=== PATIENT | female | born 1985 | race African-American/Black ===

== ENCOUNTER 2017-09-28 01:15 | Emergency (ER) | payer MEDICAID ==
[~2017-09-28] VITALS: Ht 175.3 cm; Wt 131.3 kg
[2017-09-28 01:27] VITALS: BP 136/86
--- NOTE | 2017-09-28 01:32 | NUR ---
PT AMBULATED TO BED. URINE SAMPLE COLLECTED
--- NOTE | 2017-09-28 01:32 | NUR ---
PATIENT PRESENTS TO ED WITH VAGINAL DISCHARGE AND BURNING PAIN WITH URINATION X2 DAYS. RT STATES SHE HAS SMALL AMOUNTS OF GREEN/YELLOW DISCHARGE. PT STATES SHE CHANGED SOAPS X2 DAYS AGO. DENIES N/V/D; SKIN IS PINK/WARM/DRY; AAOX4 WITH EVEN AND STEADY GAIT; LUNGS CLEAR BL; HR EVEN AND REGULAR; PT DENIES ANY FEVER, CP, SOB, OR COUGH AT THIS TIME; PATIENT STATES PAIN OF 6/10 AT THIS TIME; VSS; PATIENT POSITIONED FOR COMFORT; HOB ELEVATED; BEDRAILS UP X2; BED DOWN. ER MD MADE AWARE OF PT STATUS. CONTINUE TO MONITOR.
[2017-09-28 02:50] VITALS: BP 132/75
--- NOTE | 2017-09-28 02:50 | NUR ---
Patient discharged with v/s stable. Written and verbal after care instructions given and explained. Patient alert, oriented and verbalized understanding of instructions. Ambulatory with steady gait. All questions addressed prior to discharge. ID band removed. Patient advised to follow up with PMD. Rx of Diflucan given. Patient educated on indication of medication including possible reaction and side effects. Opportunity to ask questions provided and answered.
[2017-09-30 06:17] LABS: CHLAMYDIA TRACHOMATIS AMP DNA Negative (Negative)
== END 2017-09-28 02:50 | disposition home or self-care (01) ==
LOC: MED 01:15
DX: B37.3 Candidiasis of vulva and vagina (principal)
CPT/HCPCS: 36415; 81002; 81025; 87070; 87210; 87491; 99284

== ENCOUNTER 2017-12-15 17:33 | Emergency (ER) | payer MEDICAID ==
[~2017-12-15] VITALS: Ht 177.8 cm; Wt 137.0 kg
[2017-12-15 17:47] VITALS: BP 126/71
[2017-12-15 19:58] VITALS: BP 122/74
[2017-12-18 09:26] LABS: CHLAMYDIA TRACHOMATIS AMP DNA Negative (Negative)
== END 2017-12-15 19:58 | disposition home or self-care (01) ==
LOC: MED 17:33
DX: N76.0 Acute vaginitis (principal)
CPT/HCPCS: 36415; 81002; 81025; 87070; 87205; 87210; 87491; 99284

== ENCOUNTER 2017-12-18 18:39 | Emergency (ER) | payer MEDICAID ==
[~2017-12-18] VITALS: Ht 177.8 cm; Wt 134.3 kg
[2017-12-18 18:47] VITALS: BP 131/72
--- NOTE | 2017-12-18 18:51 | NUR ---
PT AMBULATED TO ER BED 12
--- NOTE | 2017-12-18 19:03 | NUR ---
PATIENT PRESENTS TO ED WITH CONTINUED WHITE VAGINAL DC--HAS SOME IMPROVEMENT PER PT WITH MILD PRURITUS . PT STATES . DENIES N/V/D; SKIN IS PINK/WARM/DRY; AAOX4 WITH EVEN AND STEADY GAIT; LUNGS CLEAR BL; HR EVEN AND REGULAR; PT DENIES ANY FEVER, CP, SOB, OR COUGH AT THIS TIME; PATIENT STATES PAIN OF 0/10 AT THIS TIME; VSS; PATIENT POSITIONED FOR COMFORT; HOB ELEVATED; BEDRAILS UP X2; BED DOWN. ER MD MADE AWARE OF PT STATUS.
--- NOTE | 2017-12-18 19:10 | NUR ---
REPORT RECEIVED FROM VASILIY, RN
[2017-12-18] MEDS ORDERED: cefTRIAXone 250 MG in LIDOCAINE MPF 1% - 5 mL VIAL 0.9 ML IM ONE (20:10)
--- NOTE | 2017-12-18 20:28 | NUR ---
AWAITING DISCHARGE ORDERS FROM DR RAMON.
[2017-12-18 20:45] VITALS: BP 131/72
--- NOTE | 2017-12-18 20:45 | NUR ---
Patient discharged with v/s stable. Written and verbal after care instructions given and explained. Patient verbalized understanding. Ambulatory with steady gait. All questions addressed prior to discharge. Advised to follow up with PMD.
== END 2017-12-18 20:45 | disposition home or self-care (01) ==
LOC: MED 18:39
DX: Z20.2 Contact with and (suspected) exposure to infections with a predominantly sexual mode of transmission (principal)
CPT/HCPCS: 81002; 81025; 96372; 99283; J0696; J2001

== ENCOUNTER 2021-03-09 00:18 | Emergency (ER) | payer MEDICAID, OTHER ==
[~2021-03-09] VITALS: Ht 177.8 cm; Wt 136.1 kg
[2021-03-09 01:23] LABS: BASOPHILS # (AUTO) 0.1 K/uL (0.00-0.22); BASOPHILS % (AUTO) 0.7 % (0.0-2.0); EOSINOPHILS # (AUTO) 0.1 K/uL (0-0.4); EOSINOPHILS % (AUTO) 0.9 % (0.0-4.0); HEMATOCRIT 37.8 % (36-48); MEAN CORPUSCULAR HEMOGLOBIN 28 pg (27-31); MEAN CORPUSCULAR HGB CONC 34 g/dL (33-37); MEAN CORPUSCULAR VOLUME 82.5 fL (80-94); MONOCYTES # (AUTO) 0.8 K/uL (0.8-1.0); NEUTROPHILS % (AUTO) 63.4 % (42.2-75.2); PLATELET COUNT (AUTO) 246 K/uL (140-450); RED BLOOD CELL COUNT(AUTO) 4.58 MIL/uL (4.20-5.40); RED CELL DISTRIBUTION WIDTH 13.8 % (11.6-13.7); WHITE BLOOD COUNT (AUTO) 7.9 K/uL (4.8-10.8)
[2021-03-09 01:40] LABS: ALBUMIN 3.5 g/dL (3.4-5.0); CARBON DIOXIDE 26.6 mmol/L (21-32); POTASSIUM 3.6 mmol/L (3.5-5.1); TOTAL BILIRUBIN 0.6 mg/dL (0.0-1.0)
[2021-03-09] MEDS ORDERED: NAPR-54 PO (02:59)
--- NOTE | 2021-03-09 03:30 | NUR ---
no nursing interventions required.
[2021-03-09 03:43] VITALS: BP 148/90
== END 2021-03-09 03:43 | disposition home or self-care (01) ==
LOC: MED 00:18
DX: R07.89 Other chest pain (principal)
CPT/HCPCS: 36415; 71045; 80053; 83690; 84484; 85025; 93005; 99285